=== PATIENT | female | born 1980 | race Two or more races ===

== ENCOUNTER 2019-04-09 20:48 | Emergency (ER) | payer MEDICAID, OTHER ==
[2019-04-09 21:01] VITALS: PULSE 97
--- NOTE | 2019-04-09 21:43 | EDM.PDOC ---
ED HPI GENERAL MEDICAL PROBLEM - General Chief Complaint: [employer]ICE Problem Stated Complaint: FELL Time Seen by Provider: 04/09/19 21:00 Source of Information: Reports: Patient History Limitations: Reports: No Limitations - History of Present Illness INITIAL COMMENTS - FREE TEXT/NARRATIVE: pt is at 16 weeks with EDC on September 20 , comes in with concerns for occasional lower abd cramping this evening, denies any associated vaginal discharge or bleeding or any other sx, states she had fallen off her bathtub this morning and was feeling fine through out the day , till this evening with those cramps, pt denies any changes with her BMs, last BM was this morning and denies any urinary sx. 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 Social & Family History - Family History Family Medical History: Noncontributory - Tobacco Use Smoking Status *Q: Never Smoker ED ROS GENERAL - Review of Systems Review Of Systems: See Below Constitutional: Reports: No Symptoms HEENT: Reports: No Symptoms Respiratory: Reports: No Symptoms Cardiovascular: Reports: No Symptoms GI/Abdominal: Reports: No Symptoms, Abdominal Pain. Denies: Constipation, Diarrhea, Nausea, Vomiting : Reports: No Symptoms Musculoskeletal: Reports: No Symptoms Skin: Reports: No Symptoms Neurological: Reports: No Symptoms ED EXAM, GENERAL - Physical Exam Exam: See Below Exam Limited By: No Limitations General Appearance: Alert, No Apparent Distress Nose: Normal Inspection Throat/Mouth: Normal Inspection, Normal Oropharynx Respiratory/Chest: No Respiratory Distress, Lungs Clear, Normal Breath Sounds Cardiovascular: Normal Peripheral Pulses, Regular Rate, Rhythm GI/Abdominal: Normal Bowel Sounds, Soft, Non-Tender, No Distention Back Exam: Normal Inspection, Full Range of Motion Extremities: Normal Inspection Neurological: Alert, Oriented, CN II-XII Intact Psychiatric: Normal Affect Skin Exam: Warm Course - Vital Signs Text/Narrative:: FH Doppler reveled 141 HR , UA is unremarkable, pt here is comfortable and her exam is benign, recommended supportive mng for her abd cramps and f/u if those continue over the next few days. Last Recorded V/S: Last Vital Signs Temp 36.6 C 04/09/19 20:48 Pulse 97 04/09/19 20:48 Resp 16 04/09/19 20:48 BP 117/63 04/09/19 20:48 Pulse Ox 100 04/09/19 20:48 - Orders/Labs/Meds Labs: Laboratory Tests 04/09/19 Range/Units 21:09 Urine Color Yellow (YELLOW) Urine Appearance Clear (CLEAR) Urine pH 7.0 H (5.0-6.5) Ur Specific [place] 1.010 (1.010-1.025) Urine Protein Negative (NEGATIVE) mg/dL Urine Glucose (UA) Normal (NORMAL) mg/dL Urine Ketones 15 H (NEGATIVE) mg/dL Urine Occult Blood Negative (NEGATIVE) Urine Nitrite Negative (NEGATIVE) Urine Bilirubin Negative (NEGATIVE) Urine Urobilinogen Normal (NEGATIVE) mg/dL Ur Leukocyte Esterase Negative (NEGATIVE) Urine RBC 0-5 (0-5) Urine WBC 0-5 (0-5) Ur Squamous Epith Cells Occasional (NS,R,O) Urine Bacteria Rare H (NS) Departure - Departure Time of Disposition: 22:05 Disposition: Home, Self-Care 01 Clinical Impression: Abdominal cramps - Discharge Information Referrals: Konrad Osborn MD [Primary Care Provider] - Sepsis Event Note - Evaluation Sepsis Screening Result: No Definite Risk - Focused Exam Vital Signs: Vital Signs Temp Pulse Resp BP Pulse Ox 04/09/19 20:48 36.6 C 97 16 117/63 100 Date Exam was Performed: 04/09/19 Time Exam was Performed: 21:33
[2019-04-09 22:56] VITALS: BP 106/66
== END 2019-04-09 22:10 | disposition home or self-care (01) ==
LOC: FB.ED 20:48
DX: O99.89 Other specified diseases and conditions complicating pregnancy, childbirth and the puerperium (principal); R10.30 Lower abdominal pain, unspecified; Z88.0 Allergy status to penicillin; Z3A.16 16 weeks gestation of pregnancy; W18.2XXA Fall in (into) shower or empty bathtub, initial encounter
CPT/HCPCS: 81001; 99284